=== PATIENT | female | born 1955 | race Native Hawaiian/Other Pacific Islander ===

== ENCOUNTER 2020-11-27 15:27 | Outpatient (CLI) | payer OTHER | END 2020-11-27 20:06 | disposition home or self-care (01) | LOC: INF 15:27 | PROVIDERS: ATTEND Internal Medicine Endocrinology, Diabetes & Metabolism | DX: Z23 Encounter for immunization (principal) | CPT/HCPCS: 96372 ==

== ENCOUNTER 2020-12-23 13:45 | Outpatient (CLI) | payer OTHER | END 2020-12-23 19:25 | disposition home or self-care (01) | LOC: INF 13:45 | PROVIDERS: ATTEND Internal Medicine | DX: Z23 Encounter for immunization (principal) | CPT/HCPCS: 96372 ==

== ENCOUNTER 2021-08-07 13:42 | Outpatient (CLI) | payer OTHER | END 2021-08-07 19:27 | disposition home or self-care (01) | LOC: MAMMO 13:42 | PROVIDERS: ATTEND Internal Medicine | DX: Z12.31 Encounter for screening mammogram for malignant neoplasm of breast (principal); Z13.820 Encounter for screening for osteoporosis; N95.8 Other specified menopausal and perimenopausal disorders ==

== ENCOUNTER 2022-08-19 13:51 | Outpatient (CLI) | payer OTHER ==
[2022-08-19 14:28] LABS: PLATELET COUNT 298 K/uL (152-353)
[2022-08-19 14:44] LABS: POTASSIUM 4.2 mmol/L (3.6-5.2)
== END 2022-08-19 22:01 | disposition home or self-care (01) ==
LOC: LAB 13:51
PROVIDERS: ATTEND Internal Medicine
DX: Z00.00 Encounter for general adult medical examination without abnormal findings (principal); M85.88 Other specified disorders of bone density and structure, other site; E55.9 Vitamin D deficiency, unspecified; Z79.899 Other long term (current) drug therapy
CPT/HCPCS: 80053; 80061; 82306; 84439; 84443; 85027

== ENCOUNTER 2022-08-31 10:32 | Outpatient (CLI) | payer OTHER | END 2022-08-31 19:59 | disposition home or self-care (01) | LOC: MAMMO 10:32 | PROVIDERS: ATTEND Internal Medicine | DX: Z12.31 Encounter for screening mammogram for malignant neoplasm of breast (principal) ==

== ENCOUNTER 2022-10-28 13:04 | Outpatient (CLI) | payer OTHER | END 2022-10-28 19:00 | disposition home or self-care (01) | LOC: MAMMO 13:04 | PROVIDERS: ATTEND Internal Medicine | DX: R92.8 Other abnormal and inconclusive findings on diagnostic imaging of breast (principal) ==